=== PATIENT | male | born 1950 | race Two or more races ===

== ENCOUNTER → 2024-11-02 | Outpatient (CLI) | payer OTHER, MEDICAID, SELFPAY ==
--- NOTE | 2024-11-02 14:15 | XR_ITS ---
Examination: Bone densitometry Date and time of exam:November 02, 2024 1432 hrs. Indications: 74-year-old male with diagnosis age related osteoporosis, diabetic Technique: Lumbar spine and hip total bone mineralization values of an calculated. Peak reference and age match control results have been displayed. Findings: Lumbar spine total bone mineralization is1.425 gm/cm2. This is 3.0 standard deviations above peak reference. This is 140 standard deviations f above age-matched controls. Hip total bone mineralization is 1.258 gm/cm2 This is 1.5 standard deviations above peak reference. This is 2.3 standard deviations above age-matched controls Impression: There is normal mineralization based on lumbar spine measurements. There is normal mineralization based on hip measurements
== END | disposition home or self-care (01) ==
PROVIDERS: Referring Provider Family Medicine; Visit Provider Family Medicine
DX: M81.0 Age-related osteoporosis without current pathological fracture (principal); M85.88 Other specified disorders of bone density and structure, other site
CPT/HCPCS: 77080